=== PATIENT | male | born 1965 | race Caucasian/White ===

== ENCOUNTER 2018-09-14 16:19 | Emergency (ER) | payer MEDICARE, SELFPAY ==
[2018-09-14 16:40] VITALS: BP 157/85; PULSE 90; RESP 16; TEMP 36.8; O2SAT 95
--- NOTE | 2018-09-14 17:02 | ED.GENADUL_ITS ---
Discharge Plan Disposition Patient Disposition: HOME Condition: Improving Discharge Details Chief Complaint: Nk/Back Pain Clinical Impression: Spasm of lumbar paraspinous muscle Primary Care Provider: Russell Smalls ED Provider: Mejia Villagomez Home Meds and New Rx's Prescriptions: New methocarbamol 500 mg tablet 500 - 1,000 mg PO Q6H PRN (Reason: Back pain or spasm) Qty: 14 RF: 0 Continued pravastatin 40 mg Tablet 40 mg PO DAILY RF: 0 lisinopril 40 mg Tablet 40 mg PO DAILY RF: 0 Discharge Instructions Instructions: Muscle Spasm (ED) Additional Instructions: May continue ibuprofen 800 mg, with food, as needed for pain. Next dose in 6 hours time. Remove Lidoderm patch in 12 hours. Take methocarbamol as needed for back pain and spasm. Your initial dose should be 1000 mg. May continue to use [id number] Lidoderm patches, 12 hours on, 12 hours off. Return for worsening pain, development of weakness, numbness in the lower extremity, or changes to urination. Follow-up with physical therapy as prescribed. Continue your regular medications. Stand Alone Forms: Physical Therapy Referral Medical Decision Making 52-year-old male presents from home. He was bending over to move a deck chair with a twisting motion when he felt as tightness and pain in his lower back. He did not fall or injure himself in any other way. He has not had any change to urination, gait, sensation. Patient's vital signs are normal. His exam reveals normal motor, sensory, reflex testing of the lower extremity. He does appear to have lumbar back spasm. Will treat with Lidoderm patch, ongoing NSAIDs, methocarbamol. He understands homecare, follow-up, return precautions. HPI General Mode of arrival: ambulatory . Date/Time Provider Initiated Documentation: 09/14/18 16:47 . Limitations to Documentation: no limitations . History of Present Illness 52 year old M presents to the emergency department with the chief complaint of Low back pain, described as moderate, Quality is described as dull and constant, and is localized to the back. Patient reports no radiation. Patient started experiencing this minute(s) and it has been constant. Rest improves symptom(s), Movement worsens symptoms . Patient notes no other symptoms.; denies weakness. Patient did receive the following treatments prior to arrival, NSAID Related Data Home Medications Medication Instructions Recorded Confirmed lisinopril 40 mg PO DAILY 09/14/18 09/14/18 methocarbamol 500 - 1,000 mg PO Q6H PRN #14 tab 09/14/18 pravastatin 40 mg PO DAILY 09/14/18 09/14/18 Previous Rx's Medication Instructions Recorded methocarbamol 500 - 1,000 mg PO Q6H PRN #14 tab 09/14/18 Allergies Allergy/AdvReac Type Severity Reaction Status Date / Time No Known Allergies Allergy Unverified 09/14/18 16:43 General Stated Complaint: Nk/Back Pain DONITA: 4 Review of Systems Review of Systems No numbness or tingling. No weakness. Able to walk. Worse with deep seating. No change to urination. No other injury. 6 systems reviewed and otherwise negative [facility] Social History Smoking/Tobacco Use Status: Never Substance use type: does not use Exam Narrative Exam Narrative: GEN: awake, alert, oriented 3. Pleasant, well groomed, interactive. HEAD: Normocephalic, atraumatic ENT: Mucous membranes moist, oropharynx unremarkable, External ear exam unremarkable EYES: PERRL, EOMI NECK: Full ROM, no GLORIA, no menigismus CHEST/RESP: Nontender, clear to auscultation bilateral, no wheeze/rhonchi/rales CARDIOVASCULAR: RRR, no murmur, rub princess. 2+ Rad pulse bilateral ABDOMEN: Soft, nontender, no mass. +Bowel sounds Back: Bilateral paraspinous lumbar tenderness and spasm present. No tenderness, step-off, deformity in the midline. EXT: Full ROM, no edema, no rash. Sensation intact throughout including saddle distribution. Motor 5 out of 5. Reflexes 2+ brisk and symmetric at the bilateral patella. Gait is narrow based with good heel strike Neuro: Grossly normal neurologic exam, conversant, interactive. Psych: Speech fluent, thoughts congruent, affect normal Course Vital Signs Temperature 36.8 C 09/14/18 16:40 Pulse 90 09/14/18 16:40 Respiratory Rate 16 09/14/18 16:40 Blood Pressure 157/85 H 09/14/18 16:40 Pulse Oximetry 95 09/14/18 16:40 Temperature 36.8 C 09/14/18 16:40 Temperature Source Skin 09/14/18 16:40 Pulse 90 09/14/18 16:40 Respiratory Rate 16 09/14/18 16:40 Respiratory Effort 09/14/18 16:40 Blood Pressure 157/85 H 09/14/18 16:40 Blood Pressure Position Sitting 09/14/18 16:40 Pulse Oximetry 95 09/14/18 16:40 Oxygen Delivery Method Room Air 09/14/18 16:40 Oxygen Flow Rate 0 09/14/18 16:40 Pain Level 8 09/14/18 16:40
[2018-09-14] MEDS: Ketorolac 30 MG/ML VIAL IM (17:28)
[2018-09-14] MEDS: Lidocaine 5% Patch 1 PATCH TP (17:29)
[2018-09-14 17:30] VITALS: BP 157/85; PULSE 90; RESP 16; O2SAT 95
== END 2018-09-14 17:20 | disposition home or self-care (01) ==
PROVIDERS: Emergency Provider Emergency Medicine; PCP Neuromusculoskeletal Medicine & OMM
DX: M62.830 Muscle spasm of back (principal); X50.9XXA Other and unspecified overexertion or strenuous movements or postures, initial encounter
CPT/HCPCS: 96372; 99284; J1885